=== PATIENT | male | born 1965 | race Hispanic/Latino ===

== ENCOUNTER 2020-12-23 22:27 | Emergency (ER) | payer SELFPAY ==
[~2020-12-23] VITALS: Ht 167.6 cm; Wt 90.7 kg
[2020-12-24 00:09] VITALS: BP 162/99
== END 2020-12-24 00:09 | disposition home or self-care (01) ==
LOC: FSED 22:37
DX: H10.31 Unspecified acute conjunctivitis, right eye (principal)
CPT/HCPCS: 99282